=== PATIENT | female | born 1995 | race African-American/Black ===

== ENCOUNTER 2018-09-17 23:48 | Emergency (ER) | payer OTHER ==
--- NOTE | 2018-09-18 01:01 | ED ---
Head Injury - HPI Summary HPI Summary: 23-year-old female presents with head injury today. She states she slipped and fell onto her head and landed on concrete. She denies any loss consciousness. She states she's been more and more confused. She is having difficulty remembering things. She admits to blurry vision. She is having difficulties concentrating. She admits to photophobia. She also admits to neck pain. She admits to some dizziness. No nausea or vomiting. She states she has a moderate headache. Denies any chest pressure or shortness of breath. fall was a mechanical fall. She also did land on her right elbow but has full range of motion. - History Of Current Complaint Chief Complaint: EDHeadInjury Stated Complaint: HIT MY HEAD PER PT Time Seen by Provider: 09/17/18 23:56 Pain Intensity: 5 - Allergies/Home Medications Allergies/Adverse Reactions: Allergies Allergy/AdvReac Type Severity Reaction Status Date / Time nitrofurantoin Allergy Wheezing Verified 09/17/18 23:51 [From Macrobid] Penicillins Allergy Hives Verified 09/17/18 23:51 Home Medications: Home Medications Lisinopril 5 mg PO DAILY 09/18/18 [History Confirmed 09/18/18] PMH/Surg Hx/FS Hx/Imm Hx Endocrine/Hematology History: Denies: Hx Anticoagulant Therapy Neurological History: Denies: Hx Migraine Infectious Disease History: No Infectious Disease History: Denies: Traveled Outside the [place] in Last 30 Days - Family History Known Family History: Positive: Non-Contributory - Social History Alcohol Use: unk Substance Use Type: Reports: None Smoking Status (MU): Unknown if Ever Smoked Review of Systems Negative: Fever Negative: Chest Pain Negative: Shortness Of Breath Negative: Vomiting, Nausea Positive: Headache All Other Systems Reviewed And Are Negative: Yes Physical Exam Triage Information Reviewed: Yes Vital Signs On Initial Exam: Initial Vitals Temp Pulse Resp BP Pulse Ox 98.7 F 98 16 129/86 99 09/17/18 23:51 09/17/18 23:51 09/17/18 23:51 09/17/18 23:51 09/17/18 23:51 Vital Signs Reviewed: Yes Appearance: Positive: Well-Appearing Skin: Positive: Warm, Dry, Other - abrasion to left side of forehead Head/Face: Positive: Normal Head/Face Inspection Eyes: Positive: Normal, EOMI, KAYCEE, Conjunctiva Clear ENT: Positive: Normal ENT inspection, Pharynx normal, TMs normal Neck: Positive: Other: - tenderness neck, full ROM neck Respiratory/Lung Sounds: Positive: Clear to Auscultation, Breath Sounds Present Cardiovascular: Positive: Normal, RRR Abdomen Description: Positive: Nontender, Soft Bowel Sounds: Positive: Present Musculoskeletal: Positive: Strength/ROM Intact - right elbow, Other - good pulses, tenderness right elbow Neurological: Positive: Sensory/Motor Intact, Alert, Oriented to Person Place, Time, CN Intact II-III, Finger to Nose Psychiatric: Positive: Normal - Krissy Coma Scale Best Eye Response: 4 - Spontaneous Best Motor Response: 6 - Obeys Commands Best Verbal Response: 5 - Oriented Coma Scale Total: 15 Diagnostics - Vital Signs Vital Signs Temp Pulse Resp BP Pulse Ox 09/17/18 23:51 98.7 F 98 16 129/86 99 - Laboratory Lab Statement: Any lab studies that have been ordered have been reviewed, and results considered in the medical decision making process. - Radiology neck Radiology Interpretation Completed By: ED Physician Summary of Radiographic Findings: no fracture - CT brain CT Interpretation Completed By: Radiologist Summary of CT Findings: IMPRESSION: No acute intracranial findings. Head Injury Course/Dx Course Of Treatment: 23-year-old female presents with head injury today. She states she slipped and fell onto her head and landed on concrete. She denies any loss consciousness. She states she's been more and more confused. She is having difficulty remembering things. She admits to blurry vision. She is having difficulties concentrating. She admits to photophobia. She also admits to neck pain. She admits to some dizziness. No nausea or vomiting. She states she has a moderate headache. Denies any chest pressure or shortness of breath. fall was a mechanical fall. She also did land on her right elbow but has full range of motion. On exam has a normal neuro exam but is slow to perform neuro exam. has abrasion to forehead. tenderness neck but full ROM neck. with what patient claims as change in her mental status will get a CT. CT brain normal. neck xray read by me as normal. Patient declined x-ray of elbow. Gave concussion precautions. Told to follow up with [facility]. Patient understands agrees with plan. - Diagnoses Differential Diagnosis/HQI/PQRI: Concussion Without LOC, Contusion, Intracranial Bleed Provider Diagnoses: Head injury, Neck pain, Forehead abrasion Discharge - Sign-Out/Discharge Documenting (check all that apply): Patient Departure Patient Received Moderate/Deep Sedation with Procedure: No - Discharge Plan Condition: Good Disposition: HOME Patient Education Materials: Concussion (ED) Referrals: Meredith Bearden GLUING MACHINE OPERATOR [Primary Care Provider] - Additional Instructions: Place ice on area as needed Take Tylenol or ibuprofen for headache every 6 hours keep abrasion clean Modify activities as tolerated Follow up with primary within 5 days Return to ED if develop any new or worsening symptoms - Billing Disposition and Condition Condition: GOOD Disposition: Home
[2018-09-18 01:15] VITALS: BP 121/78
== END 2018-09-18 00:50 | disposition home or self-care (01) ==
LOC: ED 23:48
DX: S09.90XA Unspecified injury of head, initial encounter (principal); S00.81XA Abrasion of other part of head, initial encounter; M54.2 Cervicalgia; W01.0XXA Fall on same level from slipping, tripping and stumbling without subsequent striking against object, initial encounter; R93.89 Abnormal findings on diagnostic imaging of other specified body structures; Z88.8 Allergy status to other drugs, medicaments and biological substances; Z88.0 Allergy status to penicillin; Z79.899 Other long term (current) drug therapy
CPT/HCPCS: 70450; 72050; 99282